=== PATIENT | male | born 1975 | race Two or more races ===

== ENCOUNTER 2020-09-30 05:40 | Day surgery (SDC) | payer OTHER ==
[~2020-09-30 05:40] MED LIST: ENALAPRIL MALE2.5 MG PO
[2020-09-30] MEDS ORDERED: MIRALAX17 GM PO (10:19)
[2020-09-30] MEDS ORDERED: TYLENOL ARTHRI650 MG PO (10:19)
[2020-09-30] MEDS ORDERED: NEURONTIN300 MG PO (10:19)
[2020-09-30] MEDS ORDERED: ULTRAM50 MG PO (10:19)
== END 2020-09-30 15:35 | disposition home or self-care (01) ==
LOC: CIR.AMB 05:40
PROVIDERS: ATTEND Surgery
DX: K40.90 Unilateral inguinal hernia, without obstruction or gangrene, not specified as recurrent (principal); D17.21 Benign lipomatous neoplasm of skin and subcutaneous tissue of right arm; Z20.828 Contact with and (suspected) exposure to other viral communicable diseases